=== PATIENT | female | born 1965 | race Caucasian/White ===

== ENCOUNTER 2019-09-30 13:17 | Emergency (ER) | payer OTHER, SELFPAY ==
[2019-09-30 13:25] VITALS: BP 113/67; PULSE 95; RESP 20; TEMP 36.4; O2SAT 98
--- NOTE | 2019-09-30 13:56 | ED.NAVMDI ---
HPI - Nausea/Vomiting/Diarrhea General Chief complaint: Nausea/Vomiting/Diarrhea Stated complaint: cough/congestion Time Seen by Provider: 09/30/19 14:00 Source: patient, family and RN notes reviewed Mode of arrival: ambulatory Limitations: no limitations History of Present Illness HPI Narrative: 54 year old female accompanied by spouse presents to express care with day 3 of sore throat and cough, fatigue,and body aches. Patient states nausea with emesis X1, has been able to tolerate crackers and water. Patient states that she works in clinic for [employer] and they had pertussis exposure but she was gone day they administered prophylaxis of Zithromax to staff and requested to have RX today. Patient also states that she had influenza A the third week of August and has never completely gotten over the cough. Patient states that she has felt feverish. MD elicited complaint: nausea, vomiting and other (body aches and fatigue) Onset (ago): day(s) (3) Description of vomiting: food contents Associated nausea: Yes Associated abdominal pain: No Location of pain: diffuse Pain consistency: intermittent Severity: mild Quality: aching Exacerbating factors: eating Relieving factors: none Associated symptoms: cough, loss of appetite and nausea/vomiting Treatment prior to arrival: analgesics Related Data Allergies Allergy/AdvReac Type Severity Reaction Status Date / Time No Known Allergies Allergy Unknown Unverified 07/27/15 15:02 Review of Systems Review of Systems: Narrative: CONSTITUTIONAL: has felt feverish, chills, or sweats. EYES: Denies visual changes, redness, or discharge. ENT: positive rhinorrhea, congestion, sore throat, no otalgia. CARDIOVASCULAR: Denies chest pain, palpitations, or edema. RESPIRATORY: Positive cough denies dyspnea. GASTROINTESTINAL: Denies abdominal pain, positive for nausea, vomiting, no diarrhea. GENITOURINARY: Denies dysuria or hematuria. SKIN: Denies rash or itching. MUSCULOSKELETAL: Denies back pain, joint pain, or myalgia. NEUROLOGIC: Denies headache, numbness, or weakness. PSYCHIATRIC: Denies anxiety or depression. All systems reviewed & are unremarkable except as noted in HPI and below PMFSH Past Medical History Medical History (Updated 09/30/19 @ 18:39 by Ashley Chapman NP) Anxiety and depression History of rectal polyps IBS (irritable bowel syndrome) Surgical History Surgical History (Updated 09/30/19 @ 18:40 by Ashley Chapman NP) H/O: hysterectomy History of appendectomy Hx of cholecystectomy Tubal ligation status Family History Family History Mother Hypertension Sibling Family history of malignant melanoma Father Hypertension Other Family history of arthritis Family history of malignant neoplasm Social History Social History (Updated 09/30/19 @ 18:41 by Ashley Chapman NP) Smoking status: Never smoker Alcohol intake: never Living arrangements: with family Gender identity (if verbalized by the patient): Female Comments At time of signature, agree with nursing past medical, history. There is no relevant family history pertinent to the presenting complaint Exam Narrative: Exam Narrative: GENERAL: Well-appearing, well-nourished, and in no acute distress. HEAD: Normocephalic, atraumatic. EYES: PERRLA and EOMI. ENT: Nares clear, no rhinorrhea or epistaxis. Mucous membranes moist. NECK: Supple.no lymphadenopathy CHEST: Clear to auscultation. No respiratory distress intermittent cough HEART: Regular rate and rhythm. No murmur heard. Normal peripheral pulses. ABDOMEN: Soft, nontender, nondistended,negative McBurney point tenderness, normal active bowel sounds. EXTREMITIES: Normal range of motion. No edema. SKIN: Warm, dry, no rash. NEURO: No focal deficits. Alert and oriented x3. Course Vital Signs Vital signs: Vital Signs Temperature 36.4 C L 09/30/19 13:25 Pulse Rate 95 09/30/19 13:25 Respir
[2019-09-30] MEDS: ONDANSETRON HCL ODT 4 MG TABLET PO (14:01)
[2019-09-30 14:59] VITALS: TEMP 37
== END 2019-09-30 14:55 | disposition home or self-care (01) ==
PROVIDERS: Emergency Provider Registered Nurse
DX: R05 Cough (principal); R11.2 Nausea with vomiting, unspecified; F41.9 Anxiety disorder, unspecified; F32.9 Major depressive disorder, single episode, unspecified
CPT/HCPCS: 87081; 87804; 87880; 99213; A9270; G0463

== ENCOUNTER → 2020-05-11 15:01 | Outpatient (REF) | payer OTHER, SELFPAY | LOC: ANHLAB 15:01 | PROVIDERS: PCP Family Medicine; Visit Provider Nurse Practitioner | DX: C86.6 Primary cutaneous CD30-positive T-cell proliferations (principal) | CPT/HCPCS: 88305; 88342 ==

== ENCOUNTER → 2020-07-13 10:41 | Outpatient (CLI) | payer OTHER, SELFPAY ==
--- NOTE | ~2020-07-13 | MM_ITS ---
EXAMINATION: MM screening ambreen BI w gricel HISTORY: Screening TECHNIQUE: Craniocaudal and mediolateral oblique 3-D tomosynthesis images were obtained and synthetic 2-D images were generated. CAD analysis was submitted and interpreted. COMPARISON: Comparison to multiple prior studies sequentially, with oldest reviewed study dated 08/31. BREAST PARENCHYMAL COMPOSITION: There are scattered areas of fibroglandular density. FINDINGS: There is no evidence of suspicious mass, calcification, or architectural distortion to sugg est malignancy in either breast. There has been no suspicious interval change. IMPRESSION: 1. No mammographic evidence of malignancy. 2. Recommend routine screening mammography in one year. BI-RADS Category 1: Negative Reviewed, dictated and finalized at location A. ICAL EDUCATOR
--- NOTE | ~2020-07-13 | DEXA_ITS ---
Bone Density Report Name: Eva Mack Age: 55 Sex: Female Ethnicity: White Date of : 1965 Indication: postmenopausal; screening for osteoporosis; hysterectomy; Referring Provider: Cassie, Marge Study: Bone densitometry was performed. Exam Date: July 13, 2020 Accession number: [id number] Bone Density: Region BMD T-score Z-score Classification AP Spine (L1-L4) 1.013 -0.3 0.9 Normal Femoral Neck (Left) 0.687 -1.5 -0.3 Osteopenia Total Hip (Left) 0.910 -0.3 0.5 Normal Femoral Neck (Right) 0.705 -1.3 -0.1 Osteopenia Total Hip (Right) 0.877 -0.5 0.3 Normal Total Hip Mean 0.894 -0.4 0.4 Normal World Health Organization criteria for BMD impression classify patients as: Normal (T-score at or above -1.0), Osteopenia (T-score between -1.0 and -2.5), or Osteoporosis (T-score at or below -2.5). 10-year Fracture Risk(1): Major Osteoporotic Fracture 7.0% Hip Fracture 0.5% Reported Risk Factors: [place] (), Neck BMD=0.687, BMI=27.7 (1) FRAX(R) Version 3.08. Fracture probability calculated for an untreated patient. Fracture probability may be lower if the patient has received treatment. Previous Exams: Region Exam Age BMD T-score BMD Change BMD Change Date g/cm2 vs Baseline vs Previous AP Spine(L1-L4) 07/13/2020 55 1.013 -0.3 -0.159* -0.159* 08/31/2012 47 1.171 1.1 Total Hip(Left) 07/13/2020 55 0.910 -0.3 -0.083* -0.083* 08/31/2012 47 0.993 0.4 Total Hip(Right) 07/13/2020 55 0.877 -0.5 -0.110* -0.110* 08/31/2012 47 0.987 0.4 *Denotes significance at 95% confidence level, LSC for AP Spine = 0.022 g/cm2, LSC for Total Hip = 0.027 g/cm2 Clinical Information Provided by Patient: Has the following medical conditions: Hysterectomy Patient maximum height was 65 Menopause Age: 47 No regular weight bearing exercise Drinks caffeinated beverages Onset of menses at age 12 Number of children 3 Impression: The patient has low bone mass, based on the Left Femoral Neck T-score. The patient has an estimated ten-year risk of hip fracture of 0.5% and an estimated ten-year risk of major fracture of 7%, based on the WHO FRAX algorithm. The BMD for the AP Spine(L1-L4) decreased, changing by -0.159 since the last DXA exam. The BMD for the Total Hip(Left) decreased, changing by -0.083 since the last DXA exam. The BMD for the Total Hip(Right) decreased, changing by -
== END ==
PROVIDERS: PCP Family Medicine; Visit Provider Nurse Practitioner
DX: Z12.31 Encounter for screening mammogram for malignant neoplasm of breast (principal); Z13.820 Encounter for screening for osteoporosis; M85.852 Other specified disorders of bone density and structure, left thigh; M85.851 Other specified disorders of bone density and structure, right thigh
CPT/HCPCS: 77063; 77067; 77080

== ENCOUNTER 2021-04-09 16:59 | Outpatient (CLI) | payer OTHER, SELFPAY ==
--- NOTE | ~2021-04-09 | XR_ITS ---
EXAMINATION: XR shoulder RT min 2V DATE: 04/09/2021 17:20 INDICATION: Right shoulder pain. TECHNIQUE: 4 views of right shoulder were obtained. COMPARISON: None. FINDINGS: Bone alignment is normal. No fracture. Glenohumeral joint is normal. There is mild acromioc lavicular joint osteoarthritis. IMPRESSION: 1. Mild right acromioclavicular joint osteoarthritis. Reviewed, dictated and finalized at location A.
== END 2021-04-09 17:00 | disposition home or self-care (01) ==
LOC: ANHIMG 17:03
PROVIDERS: PCP Family Medicine; Visit Provider Physician Assistant
DX: M25.511 Pain in right shoulder (principal); S46.911A Strain of unspecified muscle, fascia and tendon at shoulder and upper arm level, right arm, initial encounter; M19.011 Primary osteoarthritis, right shoulder
CPT/HCPCS: 73030

== ENCOUNTER → 2021-05-25 14:23 | Outpatient (REF) | payer OTHER, SELFPAY | LOC: ANHLAB 14:23 | PROVIDERS: PCP Family Medicine; Visit Provider Nurse Practitioner | DX: D23.72 Other benign neoplasm of skin of left lower limb, including hip (principal) | CPT/HCPCS: 88305 ==